=== PATIENT | male | born 1965 | race Caucasian/White ===

== ENCOUNTER 2017-02-18 09:59 | Emergency (ER) | payer MEDICARE, MEDICAID ==
[~2017-02-18] VITALS: Ht 187.9 cm; Wt 102.1 kg
[~2017-02-18 09:59] MED LIST: AUGMENTIN 875 M1 TAB PO; B-1100 MG PO; B12-METHYL1000 MCG PO; FOLIC ACID1 MG PO; LEVOFLOXACIN500 MG PO; LIBRIUM25 MG PO; METFORMIN1000 MG PO; MULTIPLE VITAMI1 TAB PO; PERCOCET 325 MG1 TA2 PO; TRAMADOL HCL50 MG PO
[2017-02-18] MEDS ORDERED: HYDRALAZINE HC100 MG PO (10:13)
[2017-02-18] MEDS ORDERED: COZAAR100 MG PO (10:13)
[2017-02-18] MEDS ORDERED: PERCOCET 325 MG1 TA2 PO (11:24)
== END 2017-02-18 11:31 | disposition home or self-care (01) ==
LOC: ED 09:59
DX: M25.511 Pain in right shoulder (principal); F17.200 Nicotine dependence, unspecified, uncomplicated; Z79.899 Other long term (current) drug therapy

== ENCOUNTER 2019-10-08 10:53 | Emergency (ER) | payer OTHER, MEDICAID ==
[~2019-10-08] VITALS: Ht 187.9 cm; Wt 104.3 kg
[~2019-10-08 10:53] MED LIST changes: +COZAAR100 MG PO; +HYDRALAZINE HC100 MG PO
[2019-10-08] MEDS ORDERED: Motrin,Rufen800 MG PO (12:26)
[2019-10-08] MEDS ORDERED: PENICILLIN-VK500 M1 PO (12:26)
== END 2019-10-08 13:09 | disposition home or self-care (01) ==
LOC: ED 10:53
DX: K04.7 Periapical abscess without sinus (principal); K02.9 Dental caries, unspecified; E11.42 Type 2 diabetes mellitus with diabetic polyneuropathy; M86.9 Osteomyelitis, unspecified; Z79.899 Other long term (current) drug therapy

== ENCOUNTER 2024-06-09 21:43 | Emergency (ER) | payer OTHER, MEDICAID ==
[~2024-06-09] VITALS: Ht 187.9 cm; Wt 102.3 kg
[~2024-06-09 21:43] MED LIST changes: +Motrin,Rufen800 MG PO; +PENICILLIN-VK500 M1 PO
[2024-06-09] MEDS ORDERED: ACETAMINOPHEN 325 MG TAB PO ONE (21:55)
[2024-06-09] MEDS ORDERED: Tdap Vaccine 0.5 ML SYR (Adult Vaccine) IM ONE (21:55)
[2024-06-09] MEDS ORDERED: EPINEPHrine/Lidocaine Hydroc 20 ML VIAL SC ONE (22:25)
== END 2024-06-09 23:10 | disposition home or self-care (01) ==
LOC: ED 21:43
DX: S81.811A Laceration without foreign body, right lower leg, initial encounter (principal); S70.311A Abrasion, right thigh, initial encounter; E11.40 Type 2 diabetes mellitus with diabetic neuropathy, unspecified; Z98.890 Other specified postprocedural states; W22.8XXA Striking against or struck by other objects, initial encounter; Y93.89 Activity, other specified; Y92.009 Unspecified place in unspecified non-institutional (private) residence as the place of occurrence of the external cause; Y99.8 Other external cause status